=== PATIENT | male | born 1940 | race Hispanic/Latino ===

== ENCOUNTER 2021-01-21 07:23 | Day surgery (SDC) | payer MEDICARE ==
[2021-01-15 14:08] LABS: BASOPHILS % (AUTO) 0.5 % (0.0-5.0); EOSINOPHILS % (AUTO) 0.7 % (0.0-8.0); HEMATOCRIT 38.3 % (42-54); LYMPHOCYTES % (AUTO) 65.7 % (21.0-51.0); MEAN CORPUSCULAR HEMOGLOBIN 30.5 pg (27.0-33.0); MEAN CORPUSCULAR HGB CONC 32.6 g/dL (32.0-36.0); MEAN CORPUSCULAR VOLUME 93.4 fL (79-99); MONOCYTES % (AUTO) 3.4 % (3.0-13.0); NEUTROPHILS % (AUTO) 29.5 % (40.0-77.0); PLATELET COUNT (AUTO) 163 K/uL (130-400); WHITE BLOOD COUNT (AUTO) 8.9 K/uL (4.8-10.8)
[2021-01-15 14:17] LABS: CREATININE 1.2 mg/dL (0.5-1.5)
[2021-01-15 14:21] LABS: INR 1.05 (0.85-1.15); PROTHROMBIN TIME 11.4 SEC (9.6-11.6)
[2021-01-15 14:22] LABS: PARTIAL THROMBOPLASTIN TIME 25.1 SEC (26.3-35.5)
[2021-01-15 14:34] LABS: APPEARANCE,URINE Cloudy (CLEAR); BILIRUBIN,URINE Negative (NEGATIVE); COLOR,URINE Yellow (YELLOW); GLUCOSE, URINE (UA) Negative (NEGATIVE); KETONES,URINE Trace mg/dL (NEGATIVE); LEUKOCYTE ESTERASE ,URINE Trace (NEGATIVE); NITRATE,URINE Negative (NEGATIVE); OCCULT BLOOD,URINE Negative (NEGATIVE); PROTEIN,URINE Trace mg/dL (NEGATIVE)
[2021-01-15 14:52] LABS: LYMPHOCYTES % (MANUAL) 55 % (22-44); MAN.DIFF COMMENT-IMPRESSION MANUAL DIFFERENTIAL; MONOCYTES % (MANUAL) 2 % (2-9); REACTIVE LYMPHOCYTES 14 % (0-0); SEGMENTED NEUTROPHILS % 29 % (40-70)
[2021-01-15 14:53] LABS: PLATELET MORPHOLOGY COMMENT ADEQUATE
[2021-01-15 14:58] LABS: BACTERIA,URINE Few /HPF (None Seen); CALCIUM OXALATE CRYSTALS,UR Many /LPF (None Seen); MUCUS,URINE Few LPF (None Seen); RBC,URINE None Seen /HPF (0-1); SQUAMOUS EPITHELIAL CELL,UR None Seen /HPF (0-2); WBC,URINE 0-1 /HPF (0-1)
[2021-01-20 09:10] VITALS: BP 137/61
[~2021-01-21] VITALS: Ht 162.6 cm; Wt 64.3 kg
[2021-01-21] VITALS (17 sets, daily range): BP systolic 123–164; BP diastolic 37–63
[~2021-01-21 07:23] MED LIST: CEFTRIAXONE 1G VIAL IVP SCH; DOCU100C33 PO; LEVO500T89 PO; MEMA5TAB42 PO; TAMS-1 PO
[2021-01-21] MEDS: GENTAMICIN 80 MG/NS 100 ML PB 100 ML IV SCH ×2 (08:00→08:22)
[2021-01-21] MEDS ORDERED: LACTATED RINGERS 1000ML 1,000 ML IV ONE (08:08)
[2021-01-21] MEDS ORDERED: ROCURONIUM 10MG/1ML SYR 10 MG/ML ML ONE (08:50)
[2021-01-21] MEDS ORDERED: PROPOFOL 10 MG/ML 20ML VIAL IV ONE (08:50)
[2021-01-21] MEDS ORDERED: FENTANYL CITRATE PF 50 MCG/1 ML 2ML VIAL ONE (08:50)
[2021-01-21] MEDS ORDERED: MEROPENEM 1 GM VIAL ONE (08:56)
[2021-01-21] MEDS ORDERED: EPHEDRINE SULFATE 50 MG/ML AMPULE ONE (09:14)
[2021-01-21] MEDS ORDERED: ONDANSETRON 4MG INJ ONE (09:44)
[2021-01-21] MEDS ORDERED: NEOSTIGMINE 5MG/5ML SYR IV ONE (10:11)
[2021-01-21] MEDS ORDERED: GLYCOPYRROLATE 1 MG/5 ML SYRINGE ONE (10:11)
== END 2021-01-21 12:25 | disposition home or self-care (01) ==
LOC: DAH 07:23
PROVIDERS: ATTEND Urology
DX: N40.1 Benign prostatic hyperplasia with lower urinary tract symptoms (principal); R35.1 Nocturia; Z20.822 Contact with and (suspected) exposure to COVID-19; N32.89 Other specified disorders of bladder; B96.29 Other Escherichia coli [E. coli] as the cause of diseases classified elsewhere; I10 Essential (primary) hypertension; M10.9 Gout, unspecified; F03.90 Unspecified dementia, unspecified severity, without behavioral disturbance, psychotic disturbance, mood disturbance, and anxiety; Z79.899 Other long term (current) drug therapy; Z98.890 Other specified postprocedural states; Z88.3 Allergy status to other anti-infective agents; Z79.01 Long term (current) use of anticoagulants
CPT/HCPCS: 36415; 52648; 71045; 80048; 81001; 85025; 85610; 85730; 87077; 87088; 87186; 87635; 93005; A4213; A4215; A4221; A4222; A4223 ×2; A4335; A4354; A4358 ×2; A4600; A4663; A6260; A6402; C9803; J0696; J1580; J2185; J2405; J2704; J2710; J3010; J3490 ×2; J7030; J7120; 96360; 96365